=== PATIENT | male | born 1940 | race Caucasian/White ===

== ENCOUNTER 2017-04-28 01:01 | Inpatient (IN) | payer MEDICARE, OTHER ==
[2017-04-28] VITALS (13 sets, daily range): BP systolic 152–187; BP diastolic 70–91; PULSE 70–83; RESP 22–26; O2SAT 90–100
[~2017-04-28] VITALS: Ht 185.4 cm; Wt 115.7 kg
[2017-04-28] MEDS ORDERED: Alum-Mag Hydrox-Simeth 30 mL Suspension PO PRN (03:00)
[2017-04-28] MEDS ORDERED: Senna-Docusate 8.6-50 mg Tablet PO PRN (03:00)
[2017-04-28] MEDS ORDERED: Ondansetron 2 mg/mL 2 mL Inj IVPUSH PRN (03:00)
[2017-04-28 03:52] LABS: BASOPHILS % (AUTO) 0.3 % (0-3); EOSINOPHILS % (AUTO) 2.7 % (0-5); MONOCYTES % (AUTO) 11.5 % (4-12); Mean Corpuscular Hemoglobin 28.7 pg (27.0-35.0); Mean Corpuscular Volume 87.4 fL (81-100); NEUTROPHILS % (AUTO) 50.3 % (40-74); Platelet Count 250 bil/L (150-400)
--- NOTE | 2017-04-28 04:06 | NUR ---
Admit note: Pt admitted from [facility]. Arrived on 4L of oxygen NC, 96% with respiratory rate of 26. Short of breath with sliding stretcher to bed. States shortness of breath and weakness has been worse over the last week. Pt has been sleeping upright in a recliner for several months at home. Alert and oriented x3. Tele SR 70s. Received Lasix per [facility] report, is voiding large amount of pale urine. Oriented to room and call light. Grand daughter Virginia in room with pt at this time.
[2017-04-28] MEDS ORDERED: Glucose 40% Oral Gel 15 Gm Tube PO PRN (04:20)
[2017-04-28 04:21] LABS: APPEARANCE,URINE CLEAR (CLEAR,HAZY); COLOR,URINE STRAW (YELLOW); OCCULT BLOOD,URINE TRACE (NEGATIVE); PH,URINE 5.5 (5.0-8.0); UROBILINOGEN,URINE NORMAL (NORMAL)
--- NOTE | 2017-04-28 04:38 | PCM.HPMED ---
Subjective Date of Service Apr 28, 2017 Primary Provider: Admitting Physician: Domingo Hernandez MD Primary Care Physician: Anita Smith MD Attending Physician: Domingo Hernandez MD Chief Complaint: dyspnea History of Present Illness: 76 yo M with history of CAD s/p CABG x5 and PCI, HTN, DM2, and HLD who presents as a transfer from [facility] for concerns of increasing dyspnea over the last week. Patient presents with his granddaughter who reports that he recently moved from [place] to this area. Pt notes that he has been having increasing dyspnea and abdominal distension for the past week. He also complains of a cough productive of dark sputum, increased wheezing, decreased UOP, and lethargy. He denies any CP, LE edema, or fever/chills. He has not had any sick contact, and has mostly been home bound. He reports that he has been having increased dyspnea over the past year, but worse in the last month after he had a prolonged episode of pneumonia. He states he was admitted to [facility] in [place] for about 1 month for pneumonia in December. Afterwards, his breathing has not improved much and he is only able to walk about 30 feet before getting very SOB. He also has been sleeping in a recliner in the past year. His granddaughter reports that patient is somewhat noncompliant with medical care and rarely goes to the doctor. At [facility], he had labs that were pertinent for: Procal neg UA 2+ blood CBC wbc of 11.4, neutrophils 46.2% INR 1.0, D-dimer 1.24 ABG - pH 7.42, pCO2 - 42.2, pO2 - 47.8, Sat O2 - 84.3 HCO3 - 27.8 CMP - 16/1.0 bun/cr, Alk Roman - 318 Trop I neg, BNP 548 He also had a CTA of his chest due to an elevated D-dimer, which did not show a PE, but did show bilateral effusions and parenchymal changes and mediastinal adenopathy. He was started on IV Ceftriaxone for possible PNA. He also was felt to be in CHF , so he received 40 mg of IV Lasix, which he states helped decreased his abdominal distension quite a bit but his breathing status was still poor. He was transferred for further Cardiology evaluation. Review of Systems: Comprehensive review of systems was conducted with the patient and found to be negative except as noted above in HPI. Allergies Coded Allergies: acetaminophen (Verified Allergy, Severe, Itching, Sweating, 04/28/17) oxycodone (Verified Allergy, Severe, Itching, Sweating, 04/28/17) Home Medications Patient is reportedly on: Carvedilol Lisinopril Simvastatin Baby aspirin PMH CAD s/p CABGx5 and 7 stents he reports Severe pneumonia requiring month long hospitalization in [place] H/o Alcohol Abuse and Tobacco dependence in remittance for about 20 years HTN HLD T2DM on insulin. PTSD Surgical History CABG x5 and PCI x 7 B/l shoulder rotator cuff surgeries Right TKR Multiple eye surgeries Family History Extensive family history of DM and cardiac disease Social History Hx Alcohol Use: Yes (Sober 20 years) Hx Substance Use: No Hx Tobacco Use: Yes (>100 pack year, quit 20 years ago) Living Arrangement: with Family (Just moved here from [place]) Exam Vital Signs Vital Sign - Last Date Time Temp Pulse Resp B/P Pulse Ox O2 Delivery O2 Flow Rate FiO2 04/28/17 02:32 36.4 75 26 187/91 96 Nasal Cannula 4.00 Exam General: Obese elderly male who appears in mild respiratory distress while laying inclined at 30 degrees HEENT: Normocephalic, atraumatic. External ears without defect. PERRLA, EOMI. Anicteric sclerae, moist conjunctivae, and no lid lag. Oropharynx free of erythema and cobble stoning with moist mucosa. Neck: Supple with full range of motion. JVD noted to angle of the jaw, positive hepatojugular reflux Cardiovascular: Regular rate and rhythm with soft systolic murmur Pulmonary: Bilateral rales up to half of lungs, diffuse upper rhonchi with diffuse mild end expiratory wheezing, mild increase in respiratory effort but no accessory muscle usage Abdomen: Obese soft abdomen that is moderately distended. NABS, tympanic to percussion, no pain to palpation, spleen and liver not palpable due to obesity, no rashes noted Extremities: Right knee replacement scar noted, BLE with no pitting edema noted , mild digital clubbing noted, no cyanosis noted Skin: Warm, dry, intact, no rashes noted Neurological: Cranial nerves grossly intact. Muscle strength grossly intact and equal, light sensation grossly intact, no tremors noted, gait not tested Psychiatric: Normal mood and affect. Alert and oriented to person, place, and time. Cooperative and pleasant Lab and Diagnostics 12-lead ECG EKG at [facility] was read as first-degree AV block with Q waves in inferior leads with regular rate Assessment & Plan 76 yo M with history of CAD s/p CABG x5 and PCI, HTN, DM2, and HLD who presents as a transfer from [facility] for concerns of increasing dyspnea x 1 week Dyspnea, POA With lack of fever, negative procalcitonin, and normal CBC, it is felt that patient does not have an infection and may be more likely due to heart failure or inflammatory process. Will continue to monitor for s/s of infection in this high risk pt though. Will need to obtain images and records from [facility] and also [facility] in [place]. Will plan to diurese with 40mg of IV Lasix daily Duonebs Q6hwa, encourage acapella Consider pulmonary and cardiology consult Will obtain Echocardiogram and chest xray tomorrow for further evaluation Placed on Telemetry for CV monitoring Hypoxemic Respiratory Failure, POA Likely chronic, but could be having an acute worsening. We are uncertain of his baseline, but he is requiring 3-4 L of O2 to maintain sats, which is not his baseline, and his pO2 and sO2 were low on ABG from [facility]. Granddaughter reports patient had a history of left lung nodule for which he neglected to f/u, and now with his mediastinal adenopathy, may warrant further eval for malignancy. His large distended abdomen probably contributes to his dyspnea, but is concerning for ascites with the improvement from lasix administration, so we will obtain an U/S for further evaluation Microscopic Hematuria, POA UA from [facility] showed 2+ blood with >3 rbcs. Uncertain if this is due to a cath draw, or if he does have gross hematuria. If abdominal U/S does not visualize kidneys, then may need to obtain a CT scan. CAD s/p CABG and PCI, POA Will continue home medications when med rec is completed ASA81 daily Further management as above T2DM, POA Will place on medium dose lispro correctional scale A1c ordered Essential HTN, POA Elevated blood pressure on admission Patient's reportedly on lisinopril, so we can give him this medication now to help with his blood pressure Hyperlipidemia, POA Will continue patient's statin Incomplete Med Rec Zofran as needed for nausea Bowel regimen as needed for constipation CODE STATUS: DO NOT RESUSCITATE/DO NOT INTUBATE, this was verified with granddaughter in the room Patient is admitted under inpatient status with expected length of stay greater than 2 midnights due to severity of presenting symptoms, risk of adverse event, and complexity of treatment plan. Pain Evaluation: Adequate Pain Control VTE Prophylaxis: Sub-Q Heparin (Unfractionated) Resuscitation Status: DNR/DNI:Do Not Resuscitate/Intubate Attending Statement The patient was seen and examined together with Dr. Ha on 04/28 and I agree with the history, exam and plan as outlined in the note above. Kiko Ha DO Apr 28, 2017 03:10 Domingo Hernandez MD Apr 28, 2017 19:14
[2017-04-28 04:40] LABS: Magnesium 1.8 mg/dL (1.6-2.6)
[2017-04-28] MEDS ORDERED: CARV12.52 PO (05:05)
[2017-04-28] MEDS ORDERED: VENL150T3 PO (05:05)
[2017-04-28] MEDS ORDERED: HUMALOG INSULIN (05:05)
[2017-04-28] MEDS ORDERED: ASPI-973 PO (05:05)
[2017-04-28] MEDS ORDERED: TAMS0.4C98 PO (05:05)
[2017-04-28] MEDS ORDERED: INSU100I13 SUBQ (05:05)
[2017-04-28] MEDS ORDERED: LISI10TA PO (05:05)
[2017-04-28] MEDS ORDERED: CETI10CA PO (05:05)
[2017-04-28] MEDS ORDERED: SIMV80TA4 PO (05:05)
[2017-04-28] MEDS ORDERED: GABA-502 PO ×3 (05:05→12:28)
[2017-04-28] MEDS ORDERED: OMEP20CA11 PO (05:05)
[2017-04-28] MEDS ORDERED: Albuterol-Ipratropium 3 mL Inhalation Solution ONE (05:12)
[2017-04-28] MEDS: Insulin LISPRO 300 Unit/3 mL Inj SUBQ SCH ×4 (08:00→20:03)
[2017-04-28] MEDS: Venlafaxine XR 75 mg ER24 Capsule PO SCH (08:16)
[2017-04-28] MEDS: Pantoprazole 20 mg ER24 Tablet PO SCH (08:16)
[2017-04-28] MEDS: Sodium Chloride LOK Flush 10 mL Syringe IVFLUSH SCH ×2 (08:17→17:22)
[2017-04-28] MEDS: Furosemide 10 mg/mL 4 mL Inj IVPUSH SCH (08:17)
[2017-04-28] MEDS: Insulin GLARgine 100 Unit/mL Syringe SUBQ SCH ×2 (08:19→20:09)
[2017-04-28] MEDS: Heparin 5,000 Unit/mL Inj SUBQ SCH ×2 (08:21→17:22)
--- NOTE | 2017-04-28 10:04 | DRSVH ---
PROCEDURE: X-RAY CHEST ONE VIEW, PORTABLE ([id number]) INDICATIONS: SHORTNESS OF BREATH TECHNIQUE: One view of the chest was acquired. COMPARISON: None. FINDINGS: Surgical changes and devices: Postsurgical changes are redemonstrated in the mediastinum. Lungs and pleura: No definite pleural effusions or pneumothorax. There is pulmonary edema. Mediastinum: Mediastinal contours appear prominent which may be due to technique. Heart size is wit hin normal limits given technique. Bones and chest wall: No suspicious bony lesions. Overlying soft tissues appear unremarkable. IMPRESSION: 1. Pulmonary edema which may be due to cardiogenic or noncardiogenic etiologies such as atypical inf ection. Dictated by: Ambrose Elmore M.D. on 04/28/2017 at 10:00 Approved by: Ambrose Elmore M.D. on 04/28/2017 at 10:01
[2017-04-28] MEDS: Albuterol-Ipratropium 3 mL Inhalation Solution NEB SCH ×3 (11:23→21:21)
[2017-04-28] MEDS: Polyethylene Glycol (PEG) 17 Gm Powder PO PRN (12:12)
[2017-04-28] MEDS ORDERED: LIP40 PO (12:33)
--- NOTE | 2017-04-28 13:32 | NUR ---
NUTRITION CONSULT Consult received re CHF/Heart Healthy Diet education. Pt and SO provided diet education re low sodium diet. Pt very pleasant, reports he likes his salt, especially on fruits. Discussed salt substitutes including Mrs. Dash. Pt slightly amenable.
--- NOTE | 2017-04-28 17:22 | DRSVH ---
[facility] [address] [place] [address] Echocardiogram Report Name: BILLY MADRIGAL CStudy Date: 04/28/2017 Height: 73 in Hospital Exam Location: [facility] Weight: 263 lb Gender: Male BSA: 2.4 m2 : 1940 Age: 76 yrs BP: 171/84 mmHg Reason For Study: CHF Ordering Physician: Performed By: Lauren Cody Referring Physician: VIOLETTA JACQUES Interpretation Summary Left ventricular systolic function is mildly reduced with the ejection fraction visually estimated to be 50-55% with akinesis of the proximal inferior wall and severe hypokinesis extending into the mid and distal inferior wall, majority of the posterior wall, and the proximal interior septum. Left ventricular wall thickness is at the upper limits of normal and diastolic parameters suggest a pseudonormalization pattern, consistent with elevated filling pressures. The right ventricle is at the upper limits of normal in size and right ventricular systolic function is mildly reduced. The right ventricular systolic pressure is estimated at 49 mmHg assuming a right atrial pressure of 15 mm Hg. The left atrium is moderately dilated. There is mild tricuspid regurgitation but no other significant valvular heart disease. The aortic root and ascending aorta are mildly enlarged. The aortic arch is at the upper limits of normal in size. Procedure: A two-dimensional transthoracic echocardiogram with color flow and Doppler was performed. The study quality was technically adequate. There is no prior echocardiogram noted for this patient. The patient was in normal sinus rhythm during the exam. Left Ventricle: The left ventricle is normal in size. Left ventricular wall thickness is at the upper limits of normal. Left ventricular systolic function is mildly reduced. The ejection fraction is estimated to be 50-55%. There is akinesis of the proximal inferior wall, with severe hypokinesis extending into the mid and distal inferior wall, majority of the posterior wall, and the proximal interior septum. Assessment of diastolic parameters suggests a pseudonormalization pattern, consistent with elevated filling pressures. Right Ventricle: The right ventricle is at the upper limits of normal in size. Right ventricular systolic function is mildly reduced. Atria: The left atrium is moderately dilated. Right atrial size is normal. The interatrial septum is intact with no evidence for an atrial septal defect. Mitral Valve: There is mild mitral annular calcification. The mitral valve leaflets appear borderline thickened, but open well. There is trace mitral regurgitation. Aortic Valve: The aortic valve is trileaflet. The aortic valve is slightly calcified. The aortic valve opens well. There is no hemodynamically significant valvular aortic stenosis. No aortic regurgitation is present. Tricuspid Valve: The tricuspid valve is normal in structure and function. There is mild tricuspid regurgitation. The right ventricular systolic pressure is estimated at 49 mmHg assuming a right atrial pressure of 15 mm Hg. Pulmonic Valve: The pulmonic valve is not well seen, but is grossly normal. There is trace pulmonic regurgitation. There is no other significant valvular heart disease. Great Vessels: The aortic root is mildly dilated. The ascending aorta is mildly enlarged. The aortic arch is at the upper limits of normal in size. The IVC is dilated (diameter is greater than 2.1 cm) and it collapses less than 50% with a sniff. This suggests a high right atrial pressure of 15 mm Hg. Pericardium/ Pleura There is no pericardial effusion. There is no pleural effusion. MMode/2D Measurements & Calculations LVIDd: 5.3 cm RA long axis LVOT diam: 2.5 cm LVIDs: 4.0 cm LA A2 area: 27.0 cm Ao root diam FS: 24.5 % LA A4 area: 28.3 cm RA area IVSd: 1.4 cm LA length (vol) asc Aorta Diam LVPWd: 1.1 cm : 21.1 cm LA vol: 99.2 ml RA vol Ao Arch Diam (Prox LA vol index : 63.9 ml Trans): 3.0 cm RA : 26.4 mm2 IVC diam: 2.6 cm LV morris. diameter/BSA LV sys. diameter/BSA (cm/m^2): 2.2 (cm/m^2): 1.7 Doppler Measurements & Calculations Ao V2 max MV E max bijan MV E/A: 1.8 TR max bijan : 139.0 cm/sec : 110.9 cm/sec Med Peak E' Bijan : 291.3 cm/sec Ao max P.7 mmHg MV A max bijan TR max PG Ao mean P.3 mmHg : 62.1 cm/sec E/E' med: 19.9 : 34.0 mmHg LVOT Max Bijan Lat Peak E' Bijan PA V2 max : 103.8 cm/sec : 78.8 cm/sec E/E' lat: 11.5 PA mean PG ANH(I,D): 3.9 cm E/e' average : 1.0 mmHg sev ratio: 0.81 MV dec time: 0.17 sec Ao V2 mean LV V1 max PG PA V2 mean : 98.2 cm/sec : 46.4 cm/sec Ao V2 VTI: 28.1 cmLV V1 VTI PA pr(Accel) : 22.9 cm : 33.3 mmHg ANH(V,D): 3.6 cm2 ANH indexed to BSA (cm^2/m^2): 1.6 Reading Physician:05:21 PM
--- NOTE | 2017-04-28 17:25 | NUR ---
Respiratory, Activity Weaned pt to 2L O2 this am, has been able to maintain sats in low 90's throughout shift. Using acapella valve when reminded. Reports grayish sputum with cough. Pt ambulated to BR this am with 1PA and FWW, had large BM. Gave miralax as requested. Currently resting comfortably in bed, voices no complaints.
--- NOTE | 2017-04-28 18:35 | DRSVH ---
PROCEDURE: US ABDOMEN ([id number]) INDICATIONS: increased abd girth, hematuria TECHNIQUE: Real-time scanning was performed of the abdominal and retroperitoneal organs, with image documentatio n. COMPARISON: None. FINDINGS: Liver: Liver is enlarged measuring 22 cm. Gallbladder: Sludge and a possible 12 mm calculus within the neck are present within the gallbladder lumen. No gallbladder wall thickening. Biliary ducts: Intrahepatic bile ducts are non-dilated. Extrahepatic bile duct caliber measures 5.5 mm. Normal is 6-7 mm or less in diameter, or 10 mm or less post-cholecystectomy. Pancreas: Not well-seen. Spleen: Spleen is normal in size and homogeneous in echotexture. Kidneys: Right superior pole renal cyst measuring 53 mm. Left kidney exophytic cyst measuring 19 mm. Kidneys are otherwise normal in size and echotexture. Right kidney measures 12.9 cm long; left kidn ey measures 12.4 cm long. No hydronephrosis or nephrolithiasis. No solid masses. Aorta: Visualized aorta is normal in caliber at less than 3 cm. Iliacs: Proximal common iliac arteries are normal in caliber at less than 2.5 cm. IVC: Intrahepatic inferior vena cava is patent. Miscellaneous: No free abdominal fluid. IMPRESSION: 1. Gallbladder sludge with possible calculus. No evidence of cholecystitis. 2. Hepatomegaly. Dictated by: Mateusz Albright M.D. on 04/28/2017 at 18:32 Approved by: Mateusz Albright M.D. on 04/28/2017 at 18:34
[2017-04-29] VITALS (11 sets, daily range): BP systolic 153–186; BP diastolic 69–87; PULSE 71–84; RESP 20–24; O2SAT 88–95
[2017-04-29] MEDS: Heparin 5,000 Unit/mL Inj SUBQ SCH ×3 (00:20→16:24)
[2017-04-29] MEDS: Sodium Chloride LOK Flush 10 mL Syringe IVFLUSH SCH ×3 (00:20→16:24)
[2017-04-29] MEDS: Albuterol-Ipratropium 3 mL Inhalation Solution NEB SCH ×4 (02:30→21:21)
--- NOTE | 2017-04-29 05:52 | NUR ---
respiratory Pt still reports SOB at rest and with exertion but a little better. SpO2 were in low to mid 90s on 2L O2. neb tx given by RT which pt stated helped the most. had BM this shift. denies pain or discomfort. uses call light appropriately. SBA to the BR; gait steady.
[2017-04-29] MEDS: Insulin LISPRO 300 Unit/3 mL Inj SUBQ SCH ×4 (07:49→21:11)
[2017-04-29] MEDS: Venlafaxine XR 75 mg ER24 Capsule PO SCH (07:58)
[2017-04-29] MEDS: Furosemide 10 mg/mL 4 mL Inj IVPUSH SCH (07:59)
[2017-04-29] MEDS: Pantoprazole 20 mg ER24 Tablet PO SCH (07:59)
[2017-04-29] MEDS: Insulin GLARgine 100 Unit/mL Syringe SUBQ SCH ×2 (08:00→21:02)
[2017-04-29] MEDS ORDERED: INSU200I SQ (10:43)
--- NOTE | 2017-04-29 13:38 | PCM.PNMED ---
Subjective Date of Service Apr 29, 2017 Subjective Patient notes is feeling much improved this morning. Breathing effort is much less than additional abdominal distention has improved significantly as well. Lasix appears to have been very effective he has been urinating consistently through the day, was up some of the night voiding as well. 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 This was ordered yesterday evening but for reasons that are unclear to me it was not provided. Did receive morning dose of her to schedule for evening dose as well. Exam Vital Signs Vital Sign - Last Date Time Temp Pulse Resp B/P Pulse Ox O2 Delivery O2 Flow Rate FiO2 04/29/17 10:54 36.5 82 24 153/69 88 Nasal Cannula 2.00 Intake and Output 04/28/17 04/28/17 04/29/17 Cumulative From/Thru 15:00 23:00 07:00 04/28/17 02:32 - 04/29/17 06:13 Intake Total 240 ml 280 ml 200 ml 720 ml Output Total 1800 ml 1200 ml 900 ml 3900 ml Balance -1560 ml -920 ml -700 ml -3180 ml Intake Oral 240 ml 280 ml 200 ml 720 ml Output Urine Total 1800 ml 1200 ml 900 ml 3900 ml # Voids 3 3 # Bowel Movements 0 1 1 2 General: Alert, Oriented X3, Cooperative Mouth: Mucous Membr Moist/[place] Chest & Lungs: Clear to auscultation & percussion, Other (trace crackles noted in bilateral lung bases) Cardiovascular: Regular Rate/Rhythm Abdomen: Non-tender, Distended, Other (distention is improved from one day prior) Extremities: No cyanosis/clubbing/edma bilat Neurological: Grossly Neurologically Intact IVs and Medications Medications Reviewed: Medications were reviewed in detail Lab and Diagnostics Result Diagram: 04/28/1734404/28/17 034 12-lead ECG EKG at [facility] was read as first-degree AV block with Q waves in inferior leads with regular rate Assessment & Plan 76 yo M with history of CAD s/p CABG x5 and PCI, HTN, DM2, and HLD who presents as a transfer from [facility] for concerns of increasing dyspnea x 1 week Hypoxic and hypercapnic respiratory failure. POA. Improving - With lack of fever, negative procalcitonin, and normal CBC, it is felt that patient does not have an infection and may be more likely due to heart failure or inflammatory process. Will continue to monitor for s/s of infection in this high risk pt though. - Supplemental oxygen provided as needed - Echocardiogram is supportive of impaired cardiac functioning with preserved ejection fraction, CHF appears most likely cause given patient's improved condition with diuresis alone - Duonebs Q6hwa, encourage acapella - Consider pulmonary and cardiology consult - Continue on telemetry monitoringring CHF acute on chronic, systolic with preserved ejection fraction - Continue dietary 6 of intravenous Lasix therapy - Closely monitor I&O in addition to daily weights. Hypertension - In poor control which will additionally create increase cardiac strain as a result of increased vascular resistance - In addition to continuing diuresis mentioned above we will strive for more tight blood pressure control - Titrating lisinopril at this time from 10 to 20 mg, will consider further adjustments based on blood pressure response and renal function. Note this case was discussed with Dr. Caceres, field sales associate, he states he does not feel formal consultation necessary at this time, advising continue diuresis , tighter blood pressure control, and consultation only if patient proves refractory to above-mentioned interventions Pulmonary nodule. Present on admission - Granddaughter reports patient had a history of left lung nodule for which he neglected to f/u, and now with his mediastinal adenopathy, may warrant further eval for malignancy. - Awaiting records transfer from [facility] and [facility] for further background on his condition ation Microscopic Hematuria, POA - UA from [facility] showed 2+ blood with >3 rbcs. - Uncertain if this is due to a cath draw, or if he does have gross hematuria. - If abdominal U/S does not visualize kidneys, then may need to obtain a CT scan. CAD s/p CABG and PCI, POA - Will continue home medications when med rec is completed - ASA81 daily - Further management as above T2DM, POA Will place on medium dose lispro correctional scale A1c ordered Essential HTN, POA Elevated blood pressure on admission Patient's reportedly on lisinopril, so we can give him this medication now to help with his blood pressure Hyperlipidemia, POA Will continue patient's statin Incomplete Med Rec Zofran as needed for nausea Bowel regimen as needed for constipation CODE STATUS: DO NOT RESUSCITATE/DO NOT INTUBATE, this was verified with granddaughter in the room Patient is admitted under inpatient status with expected length of stay greater than 2 midnights due to severity of presenting symptoms, risk of adverse event, and complexity of treatment plan. Pain Evaluation: Adequate Pain Control VTE Prophylaxis: Sub-Q Heparin (Unfractionated) Resuscitation Status: DNR/DNI:Do Not Resuscitate/Intubate Time spent 30 minutes Huseyin Gonzalez DO Apr 29, 2017 13:38
[2017-04-29] MEDS: Polyethylene Glycol (PEG) 17 Gm Powder PO PRN (16:24)
--- NOTE | 2017-04-29 17:45 | NUR ---
Respiratory: Patient continue to have shortness of breath, however states that he feels "much better" than when he came in. Remains on O2 2L via NC with O2 sats mid 90s by ATHLETIC COACH.
[2017-04-30] VITALS (12 sets, daily range): BP systolic 150–184; BP diastolic 62–84; PULSE 73–89; RESP 15–28; O2SAT 88–95
[2017-04-30] MEDS: Sodium Chloride LOK Flush 10 mL Syringe IVFLUSH SCH ×4 (00:30→21:23)
[2017-04-30] MEDS: Heparin 5,000 Unit/mL Inj SUBQ SCH ×4 (01:10→23:38)
[2017-04-30] MEDS: Albuterol-Ipratropium 3 mL Inhalation Solution NEB SCH ×4 (02:30→20:30)
--- NOTE | 2017-04-30 06:31 | NUR ---
blood pressure in NOC b/p ranging thru the night: 187/80, 178/70. Asymptomatic. Rechecked pressures several times via manual cuff after coreg 12.5mg given at HS: 160/70. Patient reported "a few moments in the night where my anxiety gets [place] high, and that's what happens." After he was able to get a few hours of sleep, b/p improved to 152/73. Patient also reports "my breathing has improved alot compared to when I first got here." tolerating RA, has cpox in place: mid-high 90's.
[2017-04-30] MEDS: Insulin LISPRO 300 Unit/3 mL Inj SUBQ SCH ×4 (07:27→21:03)
[2017-04-30] MEDS: Furosemide 10 mg/mL 4 mL Inj IVPUSH SCH (07:50)
[2017-04-30] MEDS: Pantoprazole 20 mg ER24 Tablet PO SCH (07:51)
[2017-04-30] MEDS: Venlafaxine XR 75 mg ER24 Capsule PO SCH (07:51)
[2017-04-30] MEDS: Insulin GLARgine 100 Unit/mL Syringe SUBQ SCH ×2 (07:52→21:03)
[2017-04-30 10:08] LABS: Mean Corpuscular Hemoglobin 28.9 pg (27.0-35.0); Mean Corpuscular Volume 90.8 fL (81-100)
[2017-04-30 10:09] LABS: BASOPHILS % (AUTO) 0.3 % (0-3); EOSINOPHILS % (AUTO) 1.5 % (0-5); MONOCYTES % (AUTO) 14.5 % (4-12); NEUTROPHILS % (AUTO) 45.6 % (40-74); Platelet Count 236 bil/L (150-400)
--- NOTE | 2017-04-30 11:25 | NUR ---
[place] [facility] [place] approx 1115 to [facility]. Report received from primary nurse. BP 155/72, pulse 74, oxygen 95%RA, temp 97.8. Denies pain or discomfort.
--- NOTE | 2017-04-30 11:45 | PCM.PNMED ---
Subjective Date of Service Apr 30, 2017 Subjective Did well overnight. No SOB while in bed, still becoming winded when walking. Exam Vital Signs Vital Sign - Last Date Time Temp Pulse Resp B/P Pulse Ox O2 Delivery O2 Flow Rate FiO2 04/30/17 11:22 36.6 74 15 155/72 95 Nasal Cannula 2.00 Intake and Output 04/29/17 04/29/17 04/30/17 Cumulative From/Thru 15:00 23:00 07:00 04/28/17 02:32 - 04/30/17 06:10 Intake Total 480 ml 300 ml 1500 ml Output Total 750 ml 700 ml 5350 ml Balance -270 ml -400 ml -3850 ml Intake Oral 480 ml 300 ml 1500 ml Output Urine Total 750 ml 700 ml 5350 ml # Voids 1 4 # Bowel Movements 2 Exam General: Alert, Oriented X3, Cooperative Mouth: Mucous Membranes Moist/[place] Chest & Lungs: Clear to auscultation & percussion,Trace crackles noted in bilateral lung bases) Cardiovascular: Regular Rate/Rhythm Abdomen: Non-tender, nearly resolved abdominal distension Extremities: No cyanosis/clubbing/edema bilat Neurological: Grossly Neurologically Intact IVs and Medications Medications Reviewed: Medications were reviewed in detail Lab and Diagnostics Result Diagram: 04/30/1761804/30/17618 12-lead ECG EKG at [facility] was read as first-degree AV block with Q waves in inferior leads with regular rate Assessment & Plan 76 yo M with history of CAD s/p CABG x5 and PCI, HTN, DM2, and HLD who presents as a transfer from [facility] for concerns of increasing dyspnea x 1 week Hypoxic and hypercapnic respiratory failure. POA. Improving - With lack of fever, negative procalcitonin, and normal CBC, it is felt that patient does not have an infection and may be more likely due to heart failure or inflammatory process. Will continue to monitor for s/s of infection in this high risk pt though. - Supplemental oxygen provided as needed - Echocardiogram is supportive of impaired cardiac functioning with preserved ejection fraction, CHF appears most likely cause given patient's improved condition with diuresis alone - Duonebs Q6hwa, encourage acapella - Consider pulmonary and cardiology consult if condition fails to improve, currently does not seem necessary. - Continue on telemetry monitoring - Taper oxygen as tolerated, pt not on home oxygen, may need to consider IF difficult weening with continued diuresis. CHF acute on chronic, systolic with preserved ejection fraction - Continue dietary 6 of intravenous Lasix therapy - Closely monitor I&O in addition to daily weights. Hypertension - In poor control which will additionally create increase cardiac strain as a result of increased vascular resistance - In addition to continuing diuresis mentioned above we will strive for more tight blood pressure control - Titrating lisinopril at this time from 10 to 20 mg, will consider further adjustments based on blood pressure response and renal function. Note this case was discussed with Dr. Caceres, transit clerk, he states he does not feel formal consultation necessary at this time, advising continue diuresis , tighter blood pressure control, and consultation only if patient proves refractory to above-mentioned interventions Pulmonary nodule. Present on admission - Granddaughter reports patient had a history of left lung nodule for which he neglected to f/u, and now with his mediastinal adenopathy, may warrant further eval for malignancy. - Awaiting records transfer from [facility] and [facility] for further background on his condition Microscopic Hematuria, POA - UA from [facility] showed 2+ blood with >3 rbcs. - Uncertain if this is due to a cath draw, or if he does have gross hematuria. - If abdominal U/S demonstrates normal kidneys - consider recheck out-pt to confirm resolution CAD s/p CABG and PCI, POA - Will continue home medications when med rec is completed - ASA81 daily - Further management as above T2DM, POA Will place on medium dose lispro correctional scale A1c ordered Essential HTN, POA Elevated blood pressure on admission Patient's reportedly on lisinopril, so we can give him this medication now to help with his blood pressure Hyperlipidemia, POA Will continue patient's statin CODE STATUS: DO NOT RESUSCITATE/DO NOT INTUBATE, this was verified with granddaughter in the room Patient is admitted under inpatient status with expected length of stay greater than 2 midnights due to severity of presenting symptoms, risk of adverse event, and complexity of treatment plan. Pain Evaluation: Adequate Pain Control VTE Prophylaxis: Sub-Q Heparin (Unfractionated) VTE Mechanical Devices: Venous Foot Pump Resuscitation Status: DNR/DNI:Do Not Resuscitate/Intubate Time spent 30 minutes Huseyin Gonzalez DO Apr 30, 2017 11:44
--- NOTE | 2017-04-30 17:25 | NUR ---
Elevated Systolic BP 163/74. Patient is asymptomatic. Stable oxygen at 2L KEVIN. Yinka merrill hospitalist. awaiting orders/response.
--- NOTE | 2017-04-30 17:31 | NUR ---
New orders Dr. Jacoby Martinez called and wrote orders for Carvioletlolo
--- NOTE | 2017-04-30 17:33 | NUR ---
New orders Incomplete previous note. Dr. Jacoby Lyn called and wrote new orders for Carvidilol 25 mg now and verbal orders to HOLD 2030 Carvidilol dose. will pass it to next shift.
[2017-04-30] MEDS ORDERED: Furosemide 10 mg/mL 4 mL Inj IVPUSH ONE (20:55)
[2017-04-30] MEDS ORDERED: Furosemide 10 mg/mL 2 mL Inj IV ONE (21:15)
[2017-05-01] VITALS (11 sets, daily range): BP systolic 123–185; BP diastolic 64–87; PULSE 66–89; RESP 18–26; O2SAT 89–96
[2017-05-01] MEDS ORDERED: Nitroglycerin 2% 1 Gm Ointment TOPICAL ONE (00:30)
--- NOTE | 2017-05-01 05:55 | NUR ---
BP/Resp Pt's BP elevated at beginning of shift at 174/84, MD called and order for additional dose of IV Lasix obtained and administered, pt diuresing well but BP remains unaffected. MD called again and one-time order for Nitro paste received, BP improved to 123/64 in early AM. Pt on 2lO2 per NC, breathing was noted to be labored and pt unable to speak in full sentences. Sats in high 80's. Pt takes several minutes to recover after getting up to use the urinal. O2 increased to 3L per NC and sats improved to low 90's.
[2017-05-01 07:00] LABS: BASOPHILS % (AUTO) 0.4 % (0-3); EOSINOPHILS % (AUTO) 3.2 % (0-5); MONOCYTES % (AUTO) 13.7 % (4-12); Mean Corpuscular Hemoglobin 28.8 pg (27.0-35.0); Mean Corpuscular Volume 89.8 fL (81-100); NEUTROPHILS % (AUTO) 34.4 % (40-74); Platelet Count 241 bil/L (150-400)
[2017-05-01] MEDS: Albuterol-Ipratropium 3 mL Inhalation Solution NEB SCH ×3 (08:19→20:30)
[2017-05-01] MEDS: Furosemide 10 mg/mL 4 mL Inj IVPUSH SCH (09:36)
[2017-05-01] MEDS: Heparin 5,000 Unit/mL Inj SUBQ SCH ×2 (09:37→17:12)
[2017-05-01] MEDS: Insulin GLARgine 100 Unit/mL Syringe SUBQ SCH ×2 (09:38→21:24)
[2017-05-01] MEDS: Insulin LISPRO 300 Unit/3 mL Inj SUBQ SCH ×4 (09:38→21:24)
[2017-05-01] MEDS: Venlafaxine XR 75 mg ER24 Capsule PO SCH (09:39)
[2017-05-01] MEDS: Pantoprazole 20 mg ER24 Tablet PO SCH (09:40)
[2017-05-01] MEDS: Sodium Chloride LOK Flush 10 mL Syringe IVFLUSH SCH ×2 (09:58→17:13)
--- NOTE | 2017-05-01 11:52 | NUR ---
GUDELIA signed at [id number]
--- NOTE | 2017-05-01 12:12 | PCM.PNMED ---
Subjective Date of Service May 01, 2017 Subjective Patient notes continued but some improvement in breathing function. Today's to urinate frequently. No other acute complaints this time. Exam Vital Signs Vital Sign - Last Date Time Temp Pulse Resp B/P Pulse Ox O2 Delivery O2 Flow Rate FiO2 05/01/17 11:25 83 05/01/17 08:40 36.5 18 146/87 90 Nasal Cannula 3.00 Intake and Output 04/30/17 04/30/17 05/01/17 Cumulative From/Thru 15:00 23:00 07:00 04/28/17 02:32 - 05/01/17 05:09 Intake Total 800 ml 300 ml 2600 ml Output Total 1190 ml 1650 ml 8190 ml Balance -390 ml -1350 ml -5590 ml Intake Oral 800 ml 300 ml 2600 ml IV Total 0 ml 0 ml Output Urine Total 1190 ml 1650 ml 8190 ml # Voids 4 # Bowel Movements 2 Exam General: Alert, Oriented X3, Cooperative Mouth: Mucous Membranes Moist/[place] Chest & Lungs: Clear to auscultation & percussion,Trace crackles noted in bilateral lung bases Cardiovascular: Regular Rate/Rhythm Abdomen: Non-tender, nearly resolved abdominal distension Extremities: No cyanosis/clubbing/edema bilat Neurological: Grossly Neurologically Intact IVs and Medications Medications Reviewed: Medications were reviewed in detail Lab and Diagnostics Result Diagram: 05/01/17 0643 05/01/17 0643 12-lead ECG EKG at [facility] was read as first-degree AV block with Q waves in inferior leads with regular rate Assessment & Plan 76 yo M with history of CAD s/p CABG x5 and PCI, HTN, DM2, and HLD who presents as a transfer from [facility] for concerns of increasing dyspnea x 1 week Hypoxic and hypercapnic respiratory failure. POA. Improving - With lack of fever, negative procalcitonin, and normal CBC, it is felt that patient does not have an infection and may be more likely due to heart failure or inflammatory process. Will continue to monitor for s/s of infection in this high risk pt though. - Supplemental oxygen provided as needed, nocturnal desaturation seemed to be large problem now patient remains unable to attain a saturation of greater than 90% even during the daytime and less than 2 L nasal cannula. - Echocardiogram is supportive of impaired cardiac functioning with preserved ejection fraction, CHF appears most likely cause given patient's improved condition with diuresis alone - Duonebs Q6hwa, encourage acapella - Consider pulmonary and cardiology consult if condition fails to improve, currently does not seem necessary. - Continue on telemetry monitoring - Taper oxygen as tolerated, pt not on home oxygen, may need to consider IF difficult weening with continued diuresis. CHF acute on chronic, systolic with preserved ejection fraction - Continue intravenous Lasix therapy - Closely monitor I&O in addition to daily weights, patient lost an additional 2 kg past 24 hours. Hypertension - In poor control which will additionally create increase cardiac strain as a result of increased vascular resistance - In addition to continuing diuresis mentioned above we will strive for more tight blood pressure control - Titrating lisinopril at this time from 10 to 20 mg, will consider further adjustments based on blood pressure response and renal function. Note this case was discussed with Dr. Caceres, sheeter machine operator, he states he does not feel formal consultation necessary at this time, advising continue diuresis , tighter blood pressure control, and consultation only if patient proves refractory to above-mentioned interventions Pulmonary nodule. Present on admission - Granddaughter reports patient had a history of left lung nodule for which he neglected to f/u, and now with his mediastinal adenopathy, may warrant further eval for malignancy. - Awaiting records transfer from [facility] and [facility] for further background on his condition Microscopic Hematuria, POA - UA from [facility] showed 2+ blood with >3 rbcs. - Uncertain if this is due to a cath draw, or if he does have gross hematuria. - If abdominal U/S demonstrates normal kidneys - consider recheck out-pt to confirm resolution CAD s/p CABG and PCI, POA - Will continue home medications when med rec is completed - ASA81 daily - Further management as above T2DM, POA Will place on medium dose lispro correctional scale A1c ordered Essential HTN, POA Elevated blood pressure on admission Patient's reportedly on lisinopril, so we can give him this medication now to help with his blood pressure Hyperlipidemia, POA Will continue patient's statin Pain Evaluation: Adequate Pain Control VTE Prophylaxis: Sub-Q Heparin (Unfractionated) VTE Mechanical Devices: Venous Foot Pump Resuscitation Status: DNR/DNI:Do Not Resuscitate/Intubate Time spent 25 minutes Huseyin Gonzalez DO May 01, 2017 12:12
--- NOTE | 2017-05-01 14:41 | NUR ---
Social Work: Initial Assessment/Multi-Disciplinary Rounds D: EMR reviewed. See initial assessment linked for more information. Pt is a 76 y/o male admitted for congestive heart failure per H&P. SW met with pt, spouse, and daughter at bedside to conduct initial assessment. Pt was alert and oriented x3. SW explained role and wrote phone number on white board in room. SW provided "Your Discharge Planning Checklist" and encouraged pt to contact SW with questions. Pt's insurance is Medicare and [facility] [employer]. PCP is Anita Smith MD. SW assessed pt for capacity for self-care - no concerns identified. Pt lives with his spouse in a single-story home with no steps to enter in [place]. Pt uses a walker and cane to ambulate. Pt's spouse stated she will provide transport home when pt is medically stable. Per rounds, pt to continue to be dialyzed and will be assessed for home O2. MD suggested possible need for HH RN for CHF. SW to follow for MD order for HH. A: Pt who is independent at baseline P: SW to follow for possible MD order for HH and follow for recommendations for new home O2. Pt's spouse to provide transport home when pt is medically stable. SW will continue to follow for needs. SAM Stewart Addendum: 05/01/17 at 1449 by DARSHAN GRIMALDO SS Amended: Links added.
--- NOTE | 2017-05-01 16:22 | NUR ---
WILLIAMS Patient continues to be treated with Lasix for fluid overload (1600 ml urine out so far this shift). Lungs do not sound wet although patient continues to require 2L O2 NC to keep sats in low 90's. Telemetry SR 60's, BP elevated 146/87 and 170/79. Patient is eating well denies nausea, BG 116 and 264. Patient was transferred to private room 249 due to patient family noise in previous room. Weight was 115.3 Kg standing scale this am. Patient denies pain, nausea, and states "I am breathing better today"
--- NOTE | 2017-05-01 22:39 | NUR ---
BP's SBP remains high 170-180's, MD aware no new orders at this time
[2017-05-02] VITALS (11 sets, daily range): BP systolic 145–179; BP diastolic 63–83; PULSE 68–80; RESP 16–20; O2SAT 92–95
[2017-05-02] MEDS: Heparin 5,000 Unit/mL Inj SUBQ SCH ×3 (01:48→15:41)
[2017-05-02] MEDS: Sodium Chloride LOK Flush 10 mL Syringe IVFLUSH SCH ×3 (01:48→15:41)
[2017-05-02] MEDS: Albuterol-Ipratropium 3 mL Inhalation Solution NEB SCH ×4 (02:38→20:30)
[2017-05-02 07:11] LABS: BASOPHILS % (AUTO) 0.6 % (0-3); EOSINOPHILS % (AUTO) 3.1 % (0-5); MONOCYTES % (AUTO) 12.7 % (4-12); Mean Corpuscular Volume 89.9 fL (81-100); NEUTROPHILS % (AUTO) 36.4 % (40-74); Platelet Count 271 bil/L (150-400)
[2017-05-02] MEDS: Insulin LISPRO 300 Unit/3 mL Inj SUBQ SCH ×4 (07:40→21:42)
[2017-05-02] MEDS: Venlafaxine XR 75 mg ER24 Capsule PO SCH (07:41)
[2017-05-02] MEDS: Furosemide 10 mg/mL 4 mL Inj IVPUSH SCH (07:41)
[2017-05-02] MEDS: Pantoprazole 20 mg ER24 Tablet PO SCH (07:42)
[2017-05-02] MEDS: Insulin GLARgine 100 Unit/mL Syringe SUBQ SCH ×2 (08:47→21:42)
[2017-05-02] MEDS ORDERED: Potassium Chloride 20 mEq SR Tablet PO ONE (11:00)
--- NOTE | 2017-05-02 15:30 | PCM.PNMED ---
Subjective Date of Service May 02, 2017 Subjective Pt still more short of breath than baseline but continues to improve in regard to breathing effort. Has not walked much, stood only a few times. No other acute complaints, still urinating much. Exam Vital Signs Vital Sign - Last Date Time Temp Pulse Resp B/P Pulse Ox O2 Delivery O2 Flow Rate FiO2 05/02/17 14:29 72 20 93 Nasal Cannula 2.00 05/02/17 08:31 36.8 179/83 Intake and Output 05/01/17 05/01/17 05/02/17 Cumulative From/Thru 15:00 23:00 07:00 04/28/17 02:32 - 05/02/17 06:12 Intake Total 600 ml 360 ml 3560 ml Output Total 1600 ml 650 ml 12217 ml Balance -1000 ml -290 ml -6880 ml Intake Oral 600 ml 360 ml 3560 ml IV Total 0 ml Output Urine Total 1600 ml 650 ml 20004 ml # Voids 4 8 # Bowel Movements 2 Exam General: Alert, Oriented X3, Cooperative Mouth: Mucous Membranes Moist/[place] Chest & Lungs: Clear to auscultation & percussion,nearly resolved crackles noted in bilateral lung bases Cardiovascular: Regular Rate/Rhythm Abdomen: Non-tender, abdomen soft, nondistended Extremities: No cyanosis/clubbing/edema bilat Neurological: Grossly Neurologically Intact IVs and Medications Medications Reviewed: Medications were reviewed in detail Lab and Diagnostics Result Diagram: 05/02/1764105/02/1742 12-lead ECG EKG at [facility] was read as first-degree AV block with Q waves in inferior leads with regular rate Assessment & Plan 76 yo M with history of CAD s/p CABG x5 and PCI, HTN, DM2, and HLD who presents as a transfer from [facility] for concerns of increasing dyspnea x 1 week Hypoxic and hypercapnic respiratory failure. POA. Improving - With lack of fever, negative procalcitonin, and normal CBC, it is felt that patient does not have an infection and may be more likely due to heart failure or inflammatory process. Will continue to monitor for s/s of infection in this high risk pt though. - Supplemental oxygen provided as needed, nocturnal desaturation seemed to be large problem now patient remains unable to attain a saturation of greater than 90% even during the daytime and less than 2 L nasal cannula. - Echocardiogram is supportive of impaired cardiac functioning with preserved ejection fraction, CHF appears most likely cause given patient's improved condition with diuresis alone - Duonebs Q6hwa, encourage acapella - Consider pulmonary and cardiology consult if condition fails to improve, currently does not seem necessary. - Continue on telemetry monitoring - Taper oxygen as tolerated, pt not on home oxygen, may need to consider IF difficult weening with continued diuresis. CHF acute on chronic, systolic with preserved ejection fraction - Continue intravenous Lasix therapy - Closely monitor I&O in addition to daily weights, patient lost an additional 2 kg past 24 hours. Physical therapy consulted to begin working toward strengthening for home discharge. Hypertension - In poor control which will additionally create increase cardiac strain as a result of increased vascular resistance - In addition to continuing diuresis mentioned above we will strive for more tight blood pressure control - Titrating lisinopril at this time from 10 to 20 mg, will consider further adjustments based on blood pressure response and renal function. - BPs have improved overnight. Note this case was discussed with Dr. Caceres, bright cutter, he states he does not feel formal consultation necessary at this time, advising continue diuresis , tighter blood pressure control, and consultation only if patient proves refractory to above-mentioned interventions Pulmonary nodule. Present on admission - Granddaughter reports patient had a history of left lung nodule for which he neglected to f/u, and now with his mediastinal adenopathy, may warrant further eval for malignancy. - Awaiting records transfer from [facility] and [facility] for further background on his condition Microscopic Hematuria, POA - UA from [facility] showed 2+ blood with >3 rbcs. - Uncertain if this is due to a cath draw, or if he does have gross hematuria. - If abdominal U/S demonstrates normal kidneys - consider recheck out-pt to confirm resolution CAD s/p CABG and PCI, POA - Will continue home medications when med rec is completed - ASA81 daily - Further management as above T2DM, POA Will place on medium dose lispro correctional scale A1c ordered Essential HTN, POA Elevated blood pressure on admission Patient's reportedly on lisinopril, so we can give him this medication now to help with his blood pressure Hyperlipidemia, POA Will continue patient's statin Pain Evaluation: Adequate Pain Control VTE Prophylaxis: Sub-Q Heparin (Unfractionated) VTE Mechanical Devices: Venous Foot Pump Resuscitation Status: DNR/DNI:Do Not Resuscitate/Intubate Time spent 25 minutes Huseyin Gonzalez DO May 02, 2017 15:30
[2017-05-03] VITALS (10 sets, daily range): BP systolic 159–186; BP diastolic 60–79; PULSE 72–93; RESP 18–20; O2SAT 92–96
[2017-05-03] MEDS: Heparin 5,000 Unit/mL Inj SUBQ SCH ×2 (00:59→07:55)
[2017-05-03] MEDS: Sodium Chloride LOK Flush 10 mL Syringe IVFLUSH SCH ×2 (00:59→08:00)
[2017-05-03] MEDS: Albuterol-Ipratropium 3 mL Inhalation Solution NEB SCH ×3 (02:02→14:00)
--- NOTE | 2017-05-03 02:09 | NUR ---
BP's SBP 186 @ this time gave prn Hydralazine per parameters
[2017-05-03 07:04] LABS: BASOPHILS % (AUTO) 0.4 % (0-3); MONOCYTES % (AUTO) 10.7 % (4-12); Mean Corpuscular Hemoglobin 28.4 pg (27.0-35.0); Mean Corpuscular Volume 89.8 fL (81-100); Platelet Count 272 bil/L (150-400)
[2017-05-03] MEDS: Furosemide 10 mg/mL 4 mL Inj IVPUSH SCH (07:55)
[2017-05-03] MEDS: Venlafaxine XR 75 mg ER24 Capsule PO SCH (07:55)
[2017-05-03] MEDS: Pantoprazole 20 mg ER24 Tablet PO SCH (07:56)
[2017-05-03] MEDS: Insulin GLARgine 100 Unit/mL Syringe SUBQ SCH (07:57)
[2017-05-03] MEDS: Insulin LISPRO 300 Unit/3 mL Inj SUBQ SCH ×2 (07:58→12:42)
[2017-05-03] MEDS ORDERED: Potassium Chloride 20 mEq SR Tablet PO SCH (08:00)
[2017-05-03] MEDS ORDERED: Lisinopril 40 Tablet PO SCH (08:30)
--- NOTE | 2017-05-03 11:12 | NUR ---
Evaluation completed. Please go to "Notes" then click on "Assessments and Notes" (bottom left corner of screen). Then select appropriate discipline tab on top of screen.
--- NOTE | 2017-05-03 11:21 | PCM.DC.MED ---
Discharge Summary Date of Service May 03, 2017 Dates of Hospitalization Date of Hospital Admission Apr 28, 2017 at 02:20 Date of Discharge: May 03, 2017 Providers: Admitting Physician: Domingo Hernandez MD Primary Care Physician: Anita Smith MD Attending Physician: Huseyin Gonzalez DO Procedures ECG 12 Lead EKG at [facility] was read as first-degree AV block with Q waves in inferior leads with regular rate Brief History 76 yo M with history of CAD s/p CABG x5 and PCI, HTN, DM2, and HLD who presents as a transfer from [facility] for concerns of increasing dyspnea over the last week. Patient presents with his granddaughter who reports that he recently moved from [place] to this area. Pt notes that he has been having increasing dyspnea and abdominal distension for the past week. He also complains of a cough productive of dark sputum, increased wheezing, decreased UOP, and lethargy. He denies any CP, LE edema, or fever/chills. He has not had any sick contact, and has mostly been home bound. He reports that he has been having increased dyspnea over the past year, but worse in the last month after he had a prolonged episode of pneumonia. He states he was admitted to [facility] in [place] for about 1 month for pneumonia in December. Afterwards, his breathing has not improved much and he is only able to walk about 30 feet before getting very SOB. He also has been sleeping in a recliner in the past year. His granddaughter reports that patient is somewhat noncompliant with medical care and rarely goes to the doctor. At [facility], he had labs that were pertinent for: Procal neg UA 2+ blood CBC wbc of 11.4, neutrophils 46.2% INR 1.0, D-dimer 1.24 ABG - pH 7.42, pCO2 - 42.2, pO2 - 47.8, Sat O2 - 84.3 HCO3 - 27.8 CMP - 16/1.0 bun/cr, Alk Roman - 318 Trop I neg, BNP 548 He also had a CTA of his chest due to an elevated D-dimer, which did not show a PE, but did show bilateral effusions and parenchymal changes and mediastinal adenopathy. He was started on IV Ceftriaxone for possible PNA. He also was felt to be in CHF , so he received 40 mg of IV Lasix, which he states helped decreased his abdominal distension quite a bit but his breathing status was still poor. He was transferred for further Cardiology evaluation. Hospital Course 76 yo M with history of CAD s/p CABG x5 and PCI, HTN, DM2, and HLD who presents as a transfer from [facility] for concerns of increasing dyspnea x 1 week Hypoxic and hypercapnic respiratory failure. POA. Improving - With lack of fever, negative procalcitonin, and normal CBC, it is felt that patient does not have an infection and may be more likely due to heart failure or inflammatory process. Will continue to monitor for s/s of infection in this high risk pt though. - Supplemental oxygen provided as needed, nocturnal desaturation seemed to be large problem now patient remains unable to attain a saturation of greater than 90% even during the daytime and less than 2 L nasal cannula. - Echocardiogram is supportive of impaired cardiac functioning with preserved ejection fraction, CHF appears most likely cause given patient's improved condition with diuresis alone - Duonebs Q6hwa, encourage acapella - Consider pulmonary and cardiology consult if condition fails to improve, currently does not seem necessary. - Continue on telemetry monitoring - Taper oxygen as tolerated, pt not on home oxygen, may need to consider IF difficult weening with continued diuresis. CHF acute on chronic, systolic with preserved ejection fraction - Continue intravenous Lasix therapy - Closely monitor I&O in addition to daily weights, patient lost an additional 2 kg past 24 hours. Physical therapy consulted to begin working toward strengthening for home discharge. Hypertension - In poor control which will additionally create increase cardiac strain as a result of increased vascular resistance - In addition to continuing diuresis mentioned above we will strive for more tight blood pressure control - Titrating lisinopril at this time from 10 to 20 mg, will consider further adjustments based on blood pressure response and renal function. - BPs have improved overnight. Note this case was discussed with Dr. Caceres, matrix inspector, he states he does not feel formal consultation necessary at this time, advising continue diuresis , tighter blood pressure control, and consultation only if patient proves refractory to above-mentioned interventions Pulmonary nodule. Present on admission - Granddaughter reports patient had a history of left lung nodule for which he neglected to f/u, and now with his mediastinal adenopathy, may warrant further eval for malignancy. - Awaiting records transfer from [facility] and [facility] for further background on his condition Microscopic Hematuria, POA - UA from [facility] showed 2+ blood with >3 rbcs. - Uncertain if this is due to a cath draw, or if he does have gross hematuria. - If abdominal U/S demonstrates normal kidneys - consider recheck out-pt to confirm resolution CAD s/p CABG and PCI, POA - Will continue home medications when med rec is completed - ASA81 daily - Further management as above T2DM, POA Will place on medium dose lispro correctional scale A1c ordered Essential HTN, POA Elevated blood pressure on admission Patient's reportedly on lisinopril, so we can give him this medication now to help with his blood pressure Hyperlipidemia, POA Will continue patient's statin Exam Vital Signs (Last) Date Time Temp Pulse Resp B/P Pulse Ox O2 Delivery O2 Flow Rate FiO2 05/03/17 11:00 83 Nasal Cannula 2.00 28 05/03/17 09:53 20 92 05/03/17 09:28 36.5 161/79 Test 04/28/17 03:00 04/28/17 03:45 04/28/17 10:10 05/03/17 06:30 Urine Color Straw (YELLOW) Urine Appearance Clear (CLEAR,HAZY) Urine pH 5.5 (5.0-8.0) Urine Specific [place] 1.013 (1.003-1.035) Urine Protein Negativemg/dL (NEG,TRACE) Urine Glucose (UA) Negativemg/dL (NEGATIVE) Urine Ketones Negativemg/dL (NEGATIVE) Urine Occult Blood Trace (NEGATIVE) Urine Nitrite Negative (NEGATIVE) Urine Bilirubin Negative (NEGATIVE) Urine Urobilinogen Normalmg/dL (NORMAL) Urine Leukocyte Esterase Negative (NEGATIVE) Urine RBC 3-10/hpf (0-2) Urine WBC 0-5/hpf (0-5) Urine Epithelial Cells Occasional/hpf (NONE-MOD) Urine Crystals None seen (NONE SEEN) Urine Bacteria Few/hpf (NONE-FEW) Urine Hyaline Casts None/lpf (NONE) Urine Granular Casts None seen (NONE SEEN) Urine Waxy Casts None seen (NONE SEEN) Urine Red Blood Cell Casts None seen (NONE SEEN) Urine White Blood Cell Casts None seen (NONE SEEN) Urine Mucus None seen (None Seen) Urine Trichomonas None seen (NONE SEEN) Urine Yeast None (NONE SEEN) Urinalysis Comment None Urine Culture Reflexed Not indicated Hemoglobin A1c 9.3% (4.8-5.6) Magnesium Level 1.8mg/dL (1.6-2.6) Total Bilirubin 0.4mg/dL (0.0-1.2) Aspartate Amino Transf (AST/SGOT) 20U/L (0-50) Alanine Aminotransferase (ALT/SGPT) 23U/L (0-44) Alkaline Phosphatase 291U/L (25-160) Total Protein 7.0g/dL (6.4-8.4) Albumin 3.8g/dL (3.4-5.0) Procalcitonin 0.06ng/mL (0.00-0.08) Thyroid Stimulating Hormone (TSH) 1.390uIU/mL (0.450-4.500) Troponin T 0.020ug/L (0.0-0.011) White Blood Count 12.3th/mm3 (3.8-10.1) Red Blood Count 4.22mil/mm3 (4.40-5.80) Hemoglobin 12.0g/dL (13.8-17.2) Hematocrit 37.9% (41.0-50.0) Mean Corpuscular Volume 89.8fL (81-100) Mean Corpuscular Hemoglobin 28.4pg (27.0-35.0) Mean Corpuscular Hemoglobin Concent 31.7% (32.0-37.0) Red Cell Distribution Width 14.4% (12.3-15.4) Platelet Count 272bil/L (150-400) Neutrophils (%) (Auto) 42.0% (40-74) Lymphocytes (%) (Auto) 42.7% (14-46) Monocytes (%) (Auto) 10.7% (4-12) Eosinophils (%) (Auto) 4.0% (0-5) Basophils (%) (Auto) 0.4% (0-3) Sodium Level 139mEq/L (134-144) Potassium Level 3.5mEq/L (3.5-5.2) Chloride Level 97mEq/L (97-108) Carbon Dioxide Level 31mmol/L (18-29) Blood Urea Nitrogen 18mg/dL (8-27) Creatinine 0.98mg/dL (0.76-1.27) Estimat Glomerular Filtration Rate 79mL/min (>59) Glucose Level 214mg/dL (60-99) Calcium Level 9.0mg/dL (8.5-10.1) Discharge Medications Discharge Medications Aspirin (Aspirin) 81 Mg Tablet 81 MG PO DAILY (Reported) Atorvastatin (Lipitor) 40 Mg Tablet 40 MG PO DAILY (Reported) Carvedilol (Carvedilol) 12.5 Mg Tablet 12.5 MG PO BID (Reported) Cetirizine HCl (Zyrtec) 10 Mg Capsule 10 MG PO HS (Reported) Gabapentin (Gabapentin) 300 Mg Capsule 300 MG PO DAILY (Reported) Gabapentin (Gabapentin) 300 Mg Capsule 600 MG PO HS (Reported) Insulin Glargine (Lantus U100 Solostar Insulin Pen) 100 Unit/1 Ml Insuln.pen 26 UNIT SUBQ BID (Reported) Insulin Lispro (Humalog Kwikpen) 200 Unit/Ml (3 Ml) Insuln.pen 8 UNIT SQ TIDWM ( Reported) Pt takes 8 units TID w/meals + slididng scale Lisinopril (Lisinopril) 10 Mg Tablet 10 MG PO DAILY (Reported) Omeprazole (Omeprazole) 20 Mg Capsule.dr 20 MG PO DAILY (Reported) Tamsulosin (Flomax) 0.4 Mg Capsule 0.4 MG PO HS (Reported) Venlafaxine ER (Venlafaxine ER) 150 Mg Tab.er.24 150 MG PO DAILY (Reported) Huseyin Gonzalez DO May 03, 2017 11:21
--- NOTE | 2017-05-03 12:05 | PCM.DC.MED ---
Discharge Summary Date of Service May 03, 2017 Dates of Hospitalization Date of Hospital Admission Apr 28, 2017 at 02:20 Date of Discharge: May 03, 2017 Providers: Admitting Physician: Domingo Hernandez MD Primary Care Physician: Anita Smith MD Attending Physician: Huseyin Gonzalez DO Diagnosis at Time of Discharge Diagnosis at Time of Discharge Hypoxic and hypercapnic respiratory failure. POA. Improving CHF acute on chronic, systolic with preserved ejection fraction Procedures ECG 12 Lead EKG at [facility] was read as first-degree AV block with Q waves in inferior leads with regular rate Brief History As per admission HPI by admitting physician, "76 yo M with history of CAD s/p CABG x5 and PCI, HTN, DM2, and HLD who presents as a transfer from [facility] for concerns of increasing dyspnea over the last week. Patient presents with his granddaughter who reports that he recently moved from [place] to this area. Pt notes that he has been having increasing dyspnea and abdominal distension for the past week. He also complains of a cough productive of dark sputum, increased wheezing, decreased UOP, and lethargy. He denies any CP, LE edema, or fever/chills. He has not had any sick contact, and has mostly been home bound. He reports that he has been having increased dyspnea over the past year, but worse in the last month after he had a prolonged episode of pneumonia. He states he was admitted to [facility] in [place] for about 1 month for pneumonia in December. Afterwards, his breathing has not improved much and he is only able to walk about 30 feet before getting very SOB. He also has been sleeping in a recliner in the past year. His granddaughter reports that patient is somewhat noncompliant with medical care and rarely goes to the doctor. At [facility], he had labs that were pertinent for: Procal neg UA 2+ blood CBC wbc of 11.4, neutrophils 46.2% INR 1.0, D-dimer 1.24 ABG - pH 7.42, pCO2 - 42.2, pO2 - 47.8, Sat O2 - 84.3 HCO3 - 27.8 CMP - 16/1.0 bun/cr, Alk Roman - 318 Trop I neg, BNP 548 He also had a CTA of his chest due to an elevated D-dimer, which did not show a PE, but did show bilateral effusions and parenchymal changes and mediastinal adenopathy. He was started on IV Ceftriaxone for possible PNA. He also was felt to be in CHF , so he received 40 mg of IV Lasix, which he states helped decreased his abdominal distension quite a bit but his breathing status was still poor. He was transferred for further Cardiology evaluation." Hospital Course Hypoxic and hypercapnic respiratory failure. POA. Improving - With lack of fever, negative procalcitonin, and normal CBC, it is felt that patient does not have an infection and may be more likely due to heart failure or inflammatory process. Will continue to monitor for s/s of infection in this high risk pt though. - Supplemental oxygen provided as needed, nocturnal desaturation seemed to be large problem now patient remains unable to attain a saturation of greater than 90% even during the daytime and less than 2 L nasal cannula. - Echocardiogram is supportive of impaired cardiac functioning with preserved ejection fraction, CHF appears most likely cause given patient's improved condition with diuresis alone - Duonebs Q6hwa, encourage acapella - Consider pulmonary and cardiology consult if condition fails to improve, currently does not seem necessary. - Continued on telemetry monitoring without abnormality - Oxygen weaning was not possible even one patient achieved successful diuresis. With ambulation in particular he desaturated into the 80s consistently, prompting evaluation for home oxygen therapy. On recommendation of physical therapy he was sent home with 2 L nasal cannula continuous flow as needed for shortness of breath at rest and with exertion. - Plan to follow-up with primary care physician within 1-2 weeks, and within the next month with his ornamental bronze worker for further evaluation and discussion. CHF acute on chronic, systolic with preserved ejection fraction - Continued intravenous Lasix therapy through hospitalization, transitioned back to oral therapy and discharge - Days consider alternative agent such as torsemide if patient develops refractory symptoms of congestive heart failure and discharged on this occasion - Patient's dry weight appeared to be approximately 116 KG, or ~255lbs, which she had maintained for last 2 days prior to discharge. - He was encouraged to check daily weights and consider increasing diuretic dosage with the assistance of primary care physician if weight increases more than 5 pounds from this established baseline. Hypertension - In poor control which will additionally create increase cardiac strain as a result of increased vascular resistance - In addition to continuing diuresis mentioned above we will strive for more tight blood pressure control - Titrating lisinopril at this time from 10 to 20 mg, will consider further adjustments based on blood pressure response and renal function. - BPs improved with titration of Lisinopril to 40mg po maxwell, this was continued on discharge. Note this case was discussed with Dr. Caceres, ornamental bronze worker, he states he does not feel formal consultation necessary at this time, advising continue diuresis , tighter blood pressure control, and consultation only if patient proves refractory to above-mentioned interventions Pulmonary nodule. Present on admission - Granddaughter reports patient had a history of left lung nodule for which he neglected to f/u, and now with his mediastinal adenopathy, may warrant further eval for malignancy. - Consider FU imaging in out patient setting. Microscopic Hematuria, POA - UA from [facility] showed 2+ blood with >3 rbcs. - Uncertain if this is due to a cath draw, or if he does have gross hematuria. - U/S demonstrates normal kidneys - consider recheck out-pt to confirm resolution CAD s/p CABG and PCI, POA - Will continue home medications when med rec is completed - ASA81 daily - Further management as above T2DM, POA Essential HTN, POA Elevated blood pressure on admission Titrated Lisinopril with good effect. Hyperlipidemia, POA Will continue patient's statin Exam Vital Signs (Last) Date Time Temp Pulse Resp B/P Pulse Ox O2 Delivery O2 Flow Rate FiO2 05/03/17 11:00 83 Nasal Cannula 2.00 28 05/03/17 09:53 20 92 05/03/17 09:28 36.5 161/79 Exam General: Alert, Oriented X3, Cooperative Mouth: Mucous Membranes Moist/[place] Chest & Lungs: Clear to auscultation & percussion,nearly resolved crackles noted in bilateral lung bases Cardiovascular: Regular Rate/Rhythm Abdomen: Non-tender, abdomen soft, nondistended Extremities: No cyanosis/clubbing/edema bilat Neurological: Grossly Neurologically Intact Test 04/28/17 03:00 04/28/17 03:45 04/28/17 10:10 05/03/17 06:30 Urine Color Straw (YELLOW) Urine Appearance Clear (CLEAR,HAZY) Urine pH 5.5 (5.0-8.0) Urine Specific [place] 1.013 (1.003-1.035) Urine Protein Negativemg/dL (NEG,TRACE) Urine Glucose (UA) Negativemg/dL (NEGATIVE) Urine Ketones Negativemg/dL (NEGATIVE) Urine Occult Blood Trace (NEGATIVE) Urine Nitrite Negative (NEGATIVE) Urine Bilirubin Negative (NEGATIVE) Urine Urobilinogen Normalmg/dL (NORMAL) Urine Leukocyte Esterase Negative (NEGATIVE) Urine RBC 3-10/hpf (0-2) Urine WBC 0-5/hpf (0-5) Urine Epithelial Cells Occasional/hpf (NONE-MOD) Urine Crystals None seen (NONE SEEN) Urine Bacteria Few/hpf (NONE-FEW) Urine Hyaline Casts None/lpf (NONE) Urine Granular Casts None seen (NONE SEEN) Urine Waxy Casts None seen (NONE SEEN) Urine Red Blood Cell Casts None seen (NONE SEEN) Urine White Blood Cell Casts None seen (NONE SEEN) Urine Mucus None seen (None Seen) Urine Trichomonas None seen (NONE SEEN) Urine Yeast None (NONE SEEN) Urinalysis Comment None Urine Culture Reflexed Not indicated Hemoglobin A1c 9.3% (4.8-5.6) Magnesium Level 1.8mg/dL (1.6-2.6) Total Bilirubin 0.4mg/dL (0.0-1.2) Aspartate Amino Transf (AST/SGOT) 20U/L (0-50) Alanine Aminotransferase (ALT/SGPT) 23U/L (0-44) Alkaline Phosphatase 291U/L (25-160) Total Protein 7.0g/dL (6.4-8.4) Albumin 3.8g/dL (3.4-5.0) Procalcitonin 0.06ng/mL (0.00-0.08) Thyroid Stimulating Hormone (TSH) 1.390uIU/mL (0.450-4.500) Troponin T 0.020ug/L (0.0-0.011) White Blood Count 12.3th/mm3 (3.8-10.1) Red Blood Count 4.22mil/mm3 (4.40-5.80) Hemoglobin 12.0g/dL (13.8-17.2) Hematocrit 37.9% (41.0-50.0) Mean Corpuscular Volume 89.8fL (81-100) Mean Corpuscular Hemoglobin 28.4pg (27.0-35.0) Mean Corpuscular Hemoglobin Concent 31.7% (32.0-37.0) Red Cell Distribution Width 14.4% (12.3-15.4) Platelet Count 272bil/L (150-400) Neutrophils (%) (Auto) 42.0% (40-74) Lymphocytes (%) (Auto) 42.7% (14-46) Monocytes (%) (Auto) 10.7% (4-12) Eosinophils (%) (Auto) 4.0% (0-5) Basophils (%) (Auto) 0.4% (0-3) Sodium Level 139mEq/L (134-144) Potassium Level 3.5mEq/L (3.5-5.2) Chloride Level 97mEq/L (97-108) Carbon Dioxide Level 31mmol/L (18-29) Blood Urea Nitrogen 18mg/dL (8-27) Creatinine 0.98mg/dL (0.76-1.27) Estimat Glomerular Filtration Rate 79mL/min (>59) Glucose Level 214mg/dL (60-99) Calcium Level 9.0mg/dL (8.5-10.1) Discharge Medications Discharge Medications Aspirin (Aspirin) 81 Mg Tablet 81 MG PO DAILY (Reported) Atorvastatin (Lipitor) 40 Mg Tablet 40 MG PO DAILY (Reported) Carvedilol (Carvedilol) 12.5 Mg Tablet 12.5 MG PO BID (Reported) Cetirizine HCl (Zyrtec) 10 Mg Capsule 10 MG PO HS (Reported) Gabapentin (Gabapentin) 300 Mg Capsule 300 MG PO DAILY (Reported) Gabapentin (Gabapentin) 300 Mg Capsule 600 MG PO HS (Reported) Insulin Glargine (Lantus U100 Solostar Insulin Pen) 100 Unit/1 Ml Insuln.pen 26 UNIT SUBQ BID (Reported) Insulin Lispro (Humalog Kwikpen) 200 Unit/Ml (3 Ml) Insuln.pen 8 UNIT SQ TIDWM ( Reported) Pt takes 8 units TID w/meals + slididng scale Lisinopril (Lisinopril) 10 Mg Tablet 10 MG PO DAILY (Reported) Omeprazole (Omeprazole) 20 Mg Capsule.dr 20 MG PO DAILY (Reported) Tamsulosin (Flomax) 0.4 Mg Capsule 0.4 MG PO HS (Reported) Venlafaxine ER (Venlafaxine ER) 150 Mg Tab.er.24 150 MG PO DAILY (Reported) Followup Plan Disposition: Home Follow-up plan Continue to monitor daily weights. Believe you are dry weight to be approximately 255 lbs. If you should gain greater than 5 pounds, or a weight of 260lbs on current dose of Lasix, please contact your primary care physician for further advice and possible alteration in medication You have been prescribed home oxygen therapy, to be used as needed when her oxygen saturations are below 88%, or you are feeling excessively short of breath. You should follow-up with primary care provider within 1 week of hospital discharge for review of his hospitalization. Follow-up with ornamental bronze worker next couple of weeks as well, for further evaluation and treatment. Discharge Diet: No restrictions, Heart Healthy Discharge Activity: No restrictions Follow-up Provider: Anita Smith MD Follow-up with PCP in: 1 week Time spent 45 minutes copies to: Anita Smith MD, Benjamin P DO May 03, 2017 12:05
[2017-05-03] MEDS ORDERED: FUR20 PO (12:12)
[2017-05-03] MEDS ORDERED: LISI40TA PO (12:12)
--- NOTE | 2017-05-03 12:12 | PCM.DIMED ---
Discharge Instructions Date of Service May 03, 2017 Dates of Hospitalization Apr 28, 2017 at 02:20 Discharge Diagnosis Discharge Diagnosis Hypoxic and hypercapnic respiratory failure. POA. Improving CHF acute on chronic, systolic with preserved ejection fraction Diet Discharge Diet: No restrictions, Heart Healthy Activity Discharge Activity: No restrictions Patient Instructions Follow-up plan Continue to monitor daily weights. Believe you are dry weight to be approximately 255 lbs. If you should gain greater than 5 pounds, or a weight of 260lbs on current dose of Lasix, please contact your primary care physician for further advice and possible alteration in medication You have been prescribed home oxygen therapy, to be used as needed when her oxygen saturations are below 88%, or you are feeling excessively short of breath. You should follow-up with primary care provider within 1 week of hospital discharge for review of his hospitalization. Follow-up with collision worker next couple of weeks as well, for further evaluation and treatment. Follow-up Provider: Anita Smith MD Follow-up with PCP in: 1 week Huseyin Gonzalez DO May 03, 2017 12:12
--- NOTE | 2017-05-03 14:30 | NUR ---
Social Work: Discharge / Multidisciplinary Rounds Data: Pt is on day 5 of hospitalization. EMR reviewed. D/C orders are in. Pt discussed in rounds, no d/c planning needs at this time. PROCESS DESIGN ENGINEER will continue to follow if needs arise. Assessment: Pt who is independent at baseline, capable of self care at this time. Plan: Pt will d/c home via POV today. No d/c planning needs at this time. PROCESS DESIGN ENGINEER will continue to follow if needs arise. SAM Hill
--- NOTE | 2017-05-03 15:10 | NUR ---
Discharge Pt dc instructions given. RT in with O2 tank for pt to go home with. RT stated [place] would meet them at his house to bring more o2 supplies. Pt dressed with assistance from family. IV dc'd cath intact. pt up to sba. All belongings accounted for. Pt transferred to car via by RN, safe transfer.
--- NOTE | 2017-05-05 18:54 | NUR ---
CHF Discharge follow up phone call: Received update from patient's , Arianna. According to , he is doing fine. He has all of his needed medications. He is weighing himself daily. This morning he weighed 254.6 lbs. He has a follow up appointment with his primary, Dr. Smith at the [facility] on Thursday05/11/17. Reviewed CHF teaching- weight monitoring, low salt diet, and fluid restriction. stated that patient is staying compliant with teaching. No orders for CHF outpatient Clinic follow up.
== END 2017-05-03 15:10 | disposition home or self-care (01) | DRG 291 ==
LOC: MPC 02:20 → MOC 04-30 11:00
PROVIDERS: ADMIT Hospitalist; ATTEND Family Medicine
DX: I50.43 Acute on chronic combined systolic (congestive) and diastolic (congestive) heart failure (principal); J96.91 Respiratory failure, unspecified with hypoxia; J96.92 Respiratory failure, unspecified with hypercapnia; Z95.1 Presence of aortocoronary bypass graft; Z79.82 Long term (current) use of aspirin; Z87.891 Personal history of nicotine dependence; R31.29 Other microscopic hematuria; I25.10 Atherosclerotic heart disease of native coronary artery without angina pectoris; E11.9 Type 2 diabetes mellitus without complications; I10 Essential (primary) hypertension; E78.5 Hyperlipidemia, unspecified; Z66 Do not resuscitate